=== PATIENT | male | born 1960 | race Hispanic/Latino ===

== ENCOUNTER 2024-01-28 08:49 | Observation (INO) | payer OTHER ==
[2024-01-26 14:11] VITALS: BP 135/87; PULSE 61; RESP 16
[2024-01-26 14:13] LABS: BASOPHILS # (AUTO) 0.07 K/uL (0.00-0.20); BASOPHILS % (AUTO) 1.1 % (0.0-5.0); EOSINOPHILS # (AUTO) 0.15 K/uL (0.00-0.70); EOSINOPHILS % (AUTO) 2.4 % (0.0-8.0); HEMATOCRIT 48.9 % (42-54); IMMATURE GRANULOCYTE ABSOLUTE 0.02 K/uL (0-1); LYMPHOCYTES # (AUTO) 1.8 K/uL (1.0-4.8); MEAN CORPUSCULAR HEMOGLOBIN 30.2 pg (27.0-33.0); MEAN CORPUSCULAR HGB CONC 32.7 g/dL (32.0-36.0); MEAN CORPUSCULAR VOLUME 92.3 fL (79-99); MONOCYTES # (AUTO) 0.7 K/uL (0.1-1.0); MONOCYTES % (AUTO) 10.4 % (3.0-13.0); NEUTROPHILS # (AUTO) 3.6 K/uL (1.8-7.7); NEUTROPHILS % (AUTO) 56.8 % (40.0-77.0); PLATELET COUNT (AUTO) 244 K/uL (130-400); RED CELL DISTRIBUTION WIDTH 13.3 % (11.0-15.5); WHITE BLOOD COUNT (AUTO) 6.3 K/uL (4.8-10.8)
[2024-01-26 14:33] LABS: CREATININE 1.1 mg/dL (0.5-1.3)
[2024-01-28] VITALS (17 sets, daily range): BP systolic 121–141; BP diastolic 69–88; PULSE 58–80; RESP 14–22
[~2024-01-28] VITALS: Ht 177.8 cm; Wt 94.0 kg
[~2024-01-28 08:49] MED LIST: ESOM40CA54 PO
[2024-01-28] MEDS: CEFAZOLIN SODIUM 2 GM VIAL ONE (09:03)
[2024-01-28] MEDS: LACTATED RINGERS 1000ML 1,000 ML IV ONE (09:04)
[2024-01-28] MEDS: FAMOTIDINE 20MG VIAL IV ONE (13:51)
[2024-01-28] MEDS ORDERED: SUCCINYLCHOLINE CHLORIDE 20 MG/ML 10 ML VIAL ONE (14:11)
[2024-01-28] MEDS ORDERED: PROPOFOL 10 MG/ML 20ML VIAL IV ONE ×2 (14:11→15:29)
[2024-01-28] MEDS ORDERED: LIDOCAINE PF 100MG/5ML (2%) SYRINGE 5ML ONE (14:11)
[2024-01-28] MEDS ORDERED: GLYCOPYRROLATE 0.2 MG/ML 5 ML VIAL ONE (14:11)
[2024-01-28] MEDS ORDERED: ROCURONIUM BROMIDE 10MG/1ML 5ML VL ONE (14:12)
[2024-01-28] MEDS ORDERED: BUPIVACAINE/PF 0.25% 30ML VIAL IJ ONE ×2 (14:12→14:13)
[2024-01-28] MEDS ORDERED: FENTANYL CITRATE PF 50 MCG/1 ML 5ML AMP IV ONE (14:12)
[2024-01-28] MEDS ORDERED: MIDAZOLAM HCL 1 MG/ML 2ML VIAL ONE (14:18)
[2024-01-28] MEDS ORDERED: ONDANSETRON 4MG INJ ONE (14:31)
[2024-01-28] MEDS: BUPIVACAINE/PF 0.5% 30ML VIAL ONE (15:06)
[2024-01-28] MEDS ORDERED: PROCHLORPERAZINE 10MG/2ML INJ IV PRN (15:30)
[2024-01-28] MEDS ORDERED: HYDROCODONE/ACETAMINOPHEN 7.5/325 MG 15 ML UDCUP PO PRN (15:30)
[2024-01-28] MEDS ORDERED: ONDANSETRON 4MG INJ IVP PRN (15:30)
[2024-01-28] MEDS ORDERED: MEPERIDINE-PF 25 MG/ML SYG ONE (16:27)
[2024-01-28] MEDS: MEPERIDINE-PF 25 MG/ML SYG ONE (16:59)
[2024-01-28] MEDS ORDERED: SIMETHICONE 40 MG/0.6 ML ML PO PRN (17:30)
[2024-01-28] MEDS: HYDROMORPHONE 1 MG INJ IVP PRN (17:51)
[2024-01-28] MEDS: ENOXAPARIN SODIUM 40 MG/0.4 ML SYRINGE SQ SCH (17:53)
[2024-01-28] MEDS: LACTATED RINGERS 1000ML 1,000 ML IV SCH (18:09)
[2024-01-28] MEDS: SIMETHICONE 40 MG/0.6 ML ML PO PRN (18:26)
[2024-01-28] MEDS: FAMOTIDINE 20MG VIAL IV SCH (20:21)
[2024-01-28] MEDS: KETOROLAC 15MG/ML VIAL (15MG/ML) IV PRN (20:21)
[2024-01-29] VITALS: BP 126/75; PULSE 72; RESP 20
[2024-01-29 04:00] VITALS: BP 125/78; PULSE 62; RESP 18
[2024-01-29 08:00] VITALS: BP 132/87; PULSE 74; RESP 18
[2024-01-29 11:47] VITALS: BP 127/83; PULSE 57; RESP 18
[2024-01-29 16:00] VITALS: BP 139/86; PULSE 57; RESP 18
== END 2024-01-29 18:13 | disposition home or self-care (01) ==
LOC: DAH 08:49 → INTOOBSV 08:50 → DAHIP 08:50 → DAH 08:50 → 4CH 17:35
PROVIDERS: ADMIT Surgery; ATTEND Surgery
DX: K44.9 Diaphragmatic hernia without obstruction or gangrene (principal); K21.00 Gastro-esophageal reflux disease with esophagitis, without bleeding; K29.50 Unspecified chronic gastritis without bleeding; J39.2 Other diseases of pharynx; R13.10 Dysphagia, unspecified; B96.81 Helicobacter pylori [H. pylori] as the cause of diseases classified elsewhere; F12.90 Cannabis use, unspecified, uncomplicated; Z91.040 Latex allergy status
CPT/HCPCS: 80048; 85025; 86850; 86900; 86901; 36415; 93005; 43282; 96374; 96372 ×2; 96375; 96376; 97161; 97116; A4663; J7030; J7120 ×2; A4215 ×2; J3490 ×5; J3010; J1170; J0330; J0665 ×2; J2001; J2250; J2704 ×2; J2405; J1650 ×3; J2175 ×2; J1885 ×4; J0690; G0168; C1781; A4930; A4223; A4222; A4221; A4600; G0378 ×10; 43235

== ENCOUNTER → 2024-10-28 | Outpatient (CLI) | payer OTHER ==
[~2024-10-28] MED LIST changes: -ESOM40CA54 PO; +ESOM40CA66 PO
--- NOTE | 2024-10-28 11:14 | HMCIMG ---
UPPER GI TRACT, WO KUB REASON: Epigastric pain; Diaphragmatic hernia without obstruction or gangrene; GERD. COMPARISON: None TECHNIQUE: Biphasic upper GI series study was performed. FINDINGS: There is no obstruction to the antegrade passage of barium from mouth through jejunum. A normal esophageal stripping wave is seen. There is a small hiatal hernia. There is gastroesophageal reflux seen to level of the upper mid thoracic esophagus. Stomach is well distended without ulceration or mass lesion. Duodenal bulb is seen. IMPRESSION: There is a small hiatal hernia. There is gastroesophageal reflux seen to level of the upper mid thoracic esophagus.
== END | disposition home or self-care (01) ==
LOC: RAH 10:15
PROVIDERS: ATTEND Internal Medicine Gastroenterology
DX: K21.00 Gastro-esophageal reflux disease with esophagitis, without bleeding (principal); K44.9 Diaphragmatic hernia without obstruction or gangrene; R10.13 Epigastric pain
CPT/HCPCS: 74240